=== PATIENT | female | born 1950 | race Caucasian/White ===

== ENCOUNTER → 2016-12-12 | Outpatient (CLI) | payer MEDICARE ==
--- NOTE | 2016-12-14 09:17 | PE ---
Nuclear medicine PET/CT HISTORY: Lung mass Patient received 10.6 mCi F-18 FDG intravenously. Delayed scanning performed from the skull base to t he mid thighs. Localization and attenuation correction CT scan performed Correlation to prior CT chest 05/29/2016 Neck and chest: The spiculated density at the left lung apex appears stable. There is no hypermetabol ic uptake present. No suspicious adenopathy. Abdomen pelvis: Left adrenal mass is again noted. No suspicious hypermetabolic uptake. No liver mass or retroperitoneal adenopathy. Infrarenal abdominal aorta mildly ectatic and shows atheromatous bernardo e measuring 3 cm. Uptake within the colon and small bowel felt likely to be physiologic. Osseous structures unremarkable IMPRESSION: No suspicious hypermetabolic uptake. Stable scarring left upper lobe
== END | disposition home or self-care (01) ==
LOC: RADPETMAIN 15:17
PROVIDERS: ATTEND Internal Medicine Critical Care Medicine
DX: R91.8 Other nonspecific abnormal finding of lung field (principal)
CPT/HCPCS: 78815; A9552